=== PATIENT | female | born 1960 | race Caucasian/White ===

== ENCOUNTER 2020-12-29 15:33 | Inpatient (IN) | payer BC, OTHER ==
[~2020-12-29] VITALS: Ht 162.6 cm; Wt 61.0 kg
[~2020-12-29 15:33] MED LIST: ACAMPROSATE CA333 MG PO; AUGMENTIN 875-1 EACH PO; BREO ELLIPTA 11 EACH INH; BUPRENORPHIN-N1 EACH SL; CATAPRES 0.1MG0.1 MG PO; CITALOPRAM HBR40 MG PO; FERROUS SULFAT325 M2 PO; FLORASTOR250 MG PO; LEVOFLOXACIN500 MG PO; NORCO 5-325 TA1 EACH PO; OFEV150 MG PO; PROPRANOLOL HCL60 M1 PO; PROTONIX 40 MG40 M1 PO; Voltaren Gel 1 % TOP
[2020-12-29 16:36] LABS: HEMOGLOBIN 10.1 gm/dl (12.3-15.3); RED BLOOD COUNT 2.86 M/UL (4.00-5.10); WHITE BLOOD COUNT 14.9 K/UL (4.5-11.0)
[2020-12-29] MEDS ORDERED: MAG-OX 400 TAB400 MG GT (22:46)
[2020-12-29] MEDS ORDERED: BACLOFEN10 MG PO (22:48)
[2020-12-29] MEDS ORDERED: CITALOPRAM HBR40 MG PO (22:49)
[2020-12-29] MEDS ORDERED: LASIX20 MG PO (22:56)
[2020-12-29 23:37] LABS: HEMOGLOBIN 9.8 gm/dl (12.3-15.3); RED BLOOD COUNT 2.75 M/UL (4.00-5.10); WHITE BLOOD COUNT 13.3 K/UL (4.5-11.0)
[2020-12-30 06:06] LABS: HEMOGLOBIN 9.8 gm/dl (12.3-15.3); RED BLOOD COUNT 2.76 M/UL (4.00-5.10); WHITE BLOOD COUNT 16.4 K/UL (4.5-11.0)
[2020-12-30 10:53] LABS: HEMOGLOBIN 9.5 gm/dl (12.3-15.3); RED BLOOD COUNT 2.6 M/UL (4.00-5.10); WHITE BLOOD COUNT 14.3 K/UL (4.5-11.0)
[2020-12-30 17:51] LABS: HEMOGLOBIN 8.9 gm/dl (12.3-15.3); RED BLOOD COUNT 2.46 M/UL (4.00-5.10); WHITE BLOOD COUNT 11.1 K/UL (4.5-11.0)
[2021-01-01 17:10] LABS: ORGANISM ID Not indicated. (.); SPECIMEN SOURCE Urine (.); STREPTOCOCCUS PNEUMONIAE AG Negative (Negative)
== END 2020-12-30 23:05 | DRG 917 ==
LOC: ER1 15:33 → CDU 21:22 → CCU 21:22
PROVIDERS: Internal Medicine; Preventive Medicine Occupational Medicine; ADMIT Internal Medicine
PROC: 3E033XZ Introduction of Vasopressor into Peripheral Vein, Percutaneous Approach (ICD-10-PCS; principal; 2020-12-29)
PROC: 0BH17EZ Insertion of Endotracheal Airway into Trachea, Via Natural or Artificial Opening (ICD-10-PCS; 2020-12-29)
PROC: 5A1935Z Respiratory Ventilation, Less than 24 Consecutive Hours (ICD-10-PCS; 2020-12-29)
PROC: B24BZZ4 Ultrasonography of Heart with Aorta, Transesophageal (ICD-10-PCS; 2020-12-30)
DX: T39.1X2A Poisoning by 4-Aminophenol derivatives, intentional self-harm, initial encounter (principal); K72.00 Acute and subacute hepatic failure without coma; G93.41 Metabolic encephalopathy; J69.0 Pneumonitis due to inhalation of food and vomit; J96.01 Acute respiratory failure with hypoxia; N17.0 Acute kidney failure with tubular necrosis; A41.9 Sepsis, unspecified organism; R65.21 Severe sepsis with septic shock; F11.20 Opioid dependence, uncomplicated; E44.0 Moderate protein-calorie malnutrition; E87.1 Hypo-osmolality and hyponatremia; E87.2 Acidosis; Z68.1 Body mass index [BMI] 19.9 or less, adult; Z20.822 Contact with and (suspected) exposure to COVID-19; R40.2432 Glasgow coma scale score 3-8, at arrival to emergency department; T45.7X2A Poisoning by anticoagulant antagonists, vitamin K and other coagulants, intentional self-harm, initial encounter; J44.9 Chronic obstructive pulmonary disease, unspecified; F10.10 Alcohol abuse, uncomplicated; E87.6 Hypokalemia; E88.09 Other disorders of plasma-protein metabolism, not elsewhere classified; F15.10 Other stimulant abuse, uncomplicated; K70.10 Alcoholic hepatitis without ascites; D64.9 Anemia, unspecified; I07.1 Rheumatic tricuspid insufficiency; E83.51 Hypocalcemia; J84.10 Pulmonary fibrosis, unspecified; B19.20 Unspecified viral hepatitis C without hepatic coma; R29.6 Repeated falls; Z87.81 Personal history of (healed) traumatic fracture; Z81.8 Family history of other mental and behavioral disorders; Z82.0 Family history of epilepsy and other diseases of the nervous system; Z91.14 Patient's other noncompliance with medication regimen; Z79.4 Long term (current) use of insulin
CPT/HCPCS: ECHO; 31500; 36415; 36600; 51702; 70450; 71045; 71250; 80053; 80076; 80307; 81001; 82009; 82140; 82550; 82553; 82607; 82728; 82746; 82803; 82962; 83605; 83690; 83874; 83880; 84439; 84443; 84484; 85025; 85027; 85379; 85610; 85652; 85730; 86140; 87040; 87070; 87077; 87081; 87086; 87186; 87205; 87278; 87899; 92950; 93005; 93306; 93970; 94002; 94003; 94760; 96374; 96375; 96376; 99285; C9113; G0480; J0132; J0610; J2543; J2704; J3411; J3480; J7030; J7060; J7070; P9047; U0002